=== PATIENT | male | born 1955 | race Caucasian/White ===

== ENCOUNTER → 2024-04-02 12:19 | Outpatient (REF) | payer MEDICARE, OTHER, SELFPAY | LOC: HWRAD 12:19 | PROVIDERS: ATTENDING PHYSICIAN Family Medicine | DX: R31.0 Gross hematuria (principal) | CPT/HCPCS: 74018 ==

== ENCOUNTER → 2024-05-24 10:26 | Outpatient (REF) | payer MEDICARE, OTHER, SELFPAY | LOC: RAD 10:26 | PROVIDERS: ATTENDING PHYSICIAN Specialist; FAMILY PHYSICIAN Family Medicine | DX: R31.0 Gross hematuria (principal) | CPT/HCPCS: 76770 ==

== ENCOUNTER → 2024-06-06 13:50 | Outpatient (REF) | payer MEDICARE, OTHER, SELFPAY | LOC: RAD 13:50 | PROVIDERS: ATTENDING PHYSICIAN Specialist; FAMILY PHYSICIAN Family Medicine | DX: R31.0 Gross hematuria (principal) | CPT/HCPCS: 74178; Q9967 ==

== ENCOUNTER → 2024-06-29 09:33 | Outpatient (REF) | payer MEDICARE, OTHER, SELFPAY | LOC: RAD 09:33 | PROVIDERS: ATTENDING PHYSICIAN Urology | DX: N28.89 Other specified disorders of kidney and ureter (principal) | CPT/HCPCS: 71046 ==

== ENCOUNTER 2024-07-03 06:10 | Day surgery (SDC) | payer MEDICARE, OTHER, SELFPAY ==
[2024-07-03] VITALS (10 sets, daily range): BP systolic 124–186; BP diastolic 45–98; BMI 29.6
[2024-07-03] MEDS: COREG 25 MG PO (07:21)
[2024-07-03] MEDS: NORMOSOL-R/PLASMALYTE-A 1000 IV (07:22)
[2024-07-03 07:29] LABS: Glucose - Point of Care 178 mg/dl (70-99)
[2024-07-03 09:20] LABS: Glucose - Point of Care 163 mg/dl (70-99)
[2024-07-03] MEDS: Pyridium 200 MG PO (09:53)
== END 2024-07-03 10:40 | disposition home or self-care (01) ==
LOC: SDS 06:10
PROVIDERS: ATTENDING PHYSICIAN Urology
DX: C67.9 Malignant neoplasm of bladder, unspecified (principal); N28.89 Other specified disorders of kidney and ureter; N32.0 Bladder-neck obstruction; N40.1 Benign prostatic hyperplasia with lower urinary tract symptoms; R31.0 Gross hematuria
CPT/HCPCS: 52234; 52204; 88305; 88307; 74420; 76000; 82962; 86900; 86901; 88112; 88342; A4300; C1769; C2617

== ENCOUNTER 2024-07-12 06:12 | Inpatient (IN) | payer MEDICARE, OTHER, SELFPAY ==
[2024-06-29 14:14] VITALS: BMI 30.9
[2024-07-12] VITALS (21 sets, daily range): BP systolic 136–181; BP diastolic 64–101; BMI 30.9; BMI 29.6
[2024-07-12 06:43] LABS: Glucose - Point of Care 165 mg/dl (70-99)
[2024-07-12] MEDS: NORMOSOL-R/PLASMALYTE-A 1000 IV (06:52)
[2024-07-12 08:58] LABS: Glucose - Point of Care 187 mg/dl (70-99)
[2024-07-12 11:08] LABS: Glucose - Point of Care 221 mg/dl (70-99)
[2024-07-12 11:54] LABS: Glucose - Point of Care 210 mg/dl (70-99)
--- NOTE | 2024-07-12 12:07 | W.IMMPOSTOP ---
Surgical Immed Post Op Note
-
Primary Surgeon: Josette
Assisting Surgeon:
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
Post-op Diagnosis: same
Procedure Performed: Robotic L nephroureterectomy/bladder cuff excision
Anesthesia Type: gen
Specimen / Cultures: L kidney and ureter
Estimated Blood Loss: 30cc
Complicatations: none
Operative Findings: negative leak test in bladder
[2024-07-12] MEDS: DILAUDID 0.5 MG IV ×6 (12:09→22:12)
[2024-07-12] MEDS: NOVOLOG vial 2 UNITS SC (12:26)
[2024-07-12 12:37] LABS: Hematocrit 38.7 % (39.0-52.0); Hemoglobin 13.8 g/dL (13.0-18.0)
[2024-07-12 12:58] LABS: Blood Urea Nitrogen 19 mg/dl (9-20); Calcium 9.4 mg/dl (8.4-10.2); Carbon Dioxide 25 mmol/L (22-30); Chloride 103 mmol/L (98-107); Estimated Creatinine Clearance 78 ml/min; Glucose 214 mg/dl (70-99); Potassium 4.9 mmol/L (3.5-5.1); Sodium 137 mmol/L (135-145); eGFR > 60.00
[2024-07-12] MEDS: DILAUDID 0.25 MG IV (13:10)
[2024-07-12 13:29] LABS: Glucose - Point of Care 203 mg/dl (70-99)
[2024-07-12] MEDS: NSS 1000 IV ×2 (13:30→22:11)
[2024-07-12] MEDS: NOVOLOG vial 3 UNITS SC (13:35)
[2024-07-12] MEDS: ACULAR 0.5% EYE DROPS 1 DROP OPHTH ×3 (14:01→22:11)
[2024-07-12 15:37] LABS: Glucose - Point of Care 133 mg/dl (70-99)
[2024-07-12] MEDS: PERCOCET 5/325 2 TABLET PO (17:15)
[2024-07-12 17:42] LABS: Glucose - Point of Care 134 mg/dl (70-99)
[2024-07-12] MEDS: COREG 25 MG PO (18:44)
[2024-07-12] MEDS: PERCOCET 5/325 1 TABLET PO (21:28)
[2024-07-12] MEDS: XALATAN OPHTHALMIC SOLUTION 1 DROP OPHTH (21:28)
[2024-07-12 21:56] LABS: Glucose - Point of Care 149 mg/dl (70-99)
[2024-07-12] MEDS: TYLENOL 650 MG PO (22:21)
[2024-07-12] MEDS: ZOFRAN 4 MG IV (22:21)
[2024-07-12] MEDS: ZESTRIL 20 MG PO (22:49)
[2024-07-13 00:19] VITALS: BP 168/99
[2024-07-13] MEDS: DILAUDID 0.5 MG IV (00:24)
[2024-07-13 01:28] VITALS: BP 155/92
[2024-07-13] MEDS: MYLICON 80 MG PO ×2 (02:03→10:38)
[2024-07-13 03:04] VITALS: BP 164/87
[2024-07-13] MEDS: PERCOCET 5/325 1 TABLET PO (06:33)
[2024-07-13 07:00] LABS: Hemoglobin 13.3 g/dL (13.0-18.0); Mean Corp Hgb Conc. 36.9 g/dL (33.0-37.0); Mean Corpuscular Hgb 31.4 pg (27.0-31.0); Mean Corpuscular Volume 84.9 fL (80.0-94.0); Mean Platelet Volume 9.8 fL (7.4-10.4); Platelet Count 241 10^3/uL (130-400); Red Blood Cell Count 4.24 10^6/uL (4.70-6.10); Red Cell Dist. Width 12.4 % (11.5-14.5); White Blood Cell Count 10.9 10^3/uL (4.8-10.8)
[2024-07-13 07:16] LABS: Blood Urea Nitrogen 20 mg/dl (9-20); Carbon Dioxide 24 mmol/L (22-30); Chloride 104 mmol/L (98-107); Estimated Creatinine Clearance 55 ml/min; Glucose 160 mg/dl (70-99); Potassium 4.2 mmol/L (3.5-5.1); Sodium 135 mmol/L (135-145); eGFR 59.47
[2024-07-13 08:15] LABS: Glucose - Point of Care 157 mg/dl (70-99)
[2024-07-13 08:16] VITALS: BP 113/63
--- NOTE | 2024-07-13 08:26 | W.PN.URO.CBU ---
Today's Communication / Plan
-
Discharge
Assessment / Plan
-
69M POD 1 s/p L nephroureterectomy with bladder cuff excision
- DM diet
- HTN meds
- Ambulate
- PO pain control
- Discharge home with enriquez in place
Diagnosis
-
Date of Service: July 13, 2024
-
Patient Diagnosis:
L UTUC
Post Op Day: 1 s/p L nephroureterectomy
Subjective
-
some pain overnight
tolerating diet
has not ambulated
Objective
-
Vital Signs
Temp Pulse Resp BP Pulse Ox
97.8 F 68 17 113/63 94
07/13/24 08:16 07/13/24 08:16 07/13/24 08:16 07/13/24 08:16 07/13/24 08:16
Intake and Output
07/12/24 07/13/24 07/14/24
06:59 06:59 06:59
Intake Total 1680 / 1680
Output Total 1550 / 1550
Balance 130 / 130
Intake:
Oral fluids 480 / 480
IV fluids (Total) 1200 / 1200
Output:
Urine, Enriquez 1550 / 1550
Laboratory Results
07/13/24 06:42
07/13/24 06:42
Physical Exam
-
General - well developed, well nourished, no acute distress
Chest - clear bilaterally
Abdomen - soft, non-tender
Genitalia - normal
Rectal - normal
Skin - warm & dry with no rash
Neuro - AOx3, no motor deficits
Extremities - no clubbing, no cyanosis, no edema
Incision - clean, dry
Dressing - clean, dry, intact
--- NOTE | 2024-07-13 08:28 | W.DS.TRANS ---
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
-
Discharge Instructions:
Sleep Apnea Risk Intermediate
Instructions:
Stand-Alone Forms:
Changes to Home Medications: No
Discharge Medications:
DC Medications w/original date entered in [facility]
carvedilol 25 mg tablet 25 mg PO BID Heart Disease/Condition 06/29/24
hcgkhpraxez-yklnoerju-wzg C-Mn 500 mg-400 mg capsule 1 cap PO DAILY 06/29/24
latanoprost 0.005 % eye drops 1 drp ophthalmic (eye) HS Eye Condition 06/29/24
lisinopril 40 mg tablet 40 mg PO DAILY Blood Pressure 06/29/24
metformin 500 mg tablet,extended release 24hr (osmotic) 500 mg PO BID Infection 06/29/24
multivitamin 1 tab PO DAILY Supplement 06/29/24
Home Medication Changes
Pending Results: Yes (patholgoy)
[2024-07-13] MEDS: COREG 25 MG PO (08:32)
[2024-07-13] MEDS: ACULAR 0.5% EYE DROPS 1 DROP OPHTH (08:32)
--- NOTE | 2024-07-13 09:28 | CM ---
Addendum entered by Brittany Houser RN 07/13/24 09:31:
Correction: Patient's pharmacy is the [facility].
Original Note:
Reviewed the chart notes and spoke with the patient at the bedside. IMM reviewed. The patient resides with his spouse in a two story home with no steps to enter. The patient reports no DME/VN/SNF in the past. The patient confirmed his pharmacy
of choice is the [facility]. CM continues to be available to patient/family and is monitoring medical plan for needs at discharge.
Plan: Discharge to home today with no needs. Patient's spouse to provide transportation.
[2024-07-13 10:09] LABS: Glycohemoglobin (HgbA1c) 6.6 % (4.0-5.6)
[2024-07-13] MEDS: ZESTRIL 40 MG PO (10:24)
[2024-07-13] MEDS: PERCOCET 5/325 2 TABLET PO (10:33)
[2024-07-13 12:36] LABS: Glucose - Point of Care 224 mg/dl (70-99)
[2024-07-13 12:49] VITALS: BP 128/63
== END 2024-07-13 13:37 | disposition home or self-care (01) | DRG 655 ==
LOC: 2 NORTH 06:12
PROVIDERS: ADMITTING PHYSICIAN Urology
PROC: 0TBB4ZZ Excision of Bladder, Percutaneous Endoscopic Approach (ICD-10-PCS; 2024-07-12)
PROC: 0TT14ZZ Resection of Left Kidney, Percutaneous Endoscopic Approach (ICD-10-PCS; 2024-07-12)
PROC: 0TT74ZZ Resection of Left Ureter, Percutaneous Endoscopic Approach (ICD-10-PCS; 2024-07-12)
DX: C68.9 Malignant neoplasm of urinary organ, unspecified (principal); E11.9 Type 2 diabetes mellitus without complications; I10 Essential (primary) hypertension
CPT/HCPCS: 88307; 88309; 71045; 80048; 82962; 83036; 85014; 85018; 85027; 86920

== ENCOUNTER → 2024-11-16 11:34 | Outpatient (REF) | payer MEDICARE, OTHER, SELFPAY | LOC: CLAB 11:34 | PROVIDERS: ATTENDING PHYSICIAN Urology | DX: R31.0 Gross hematuria (principal) | CPT/HCPCS: 88112 ==

== ENCOUNTER → 2025-01-17 07:10 | Outpatient (REF) | payer MEDICARE, OTHER, SELFPAY | LOC: RAD 07:10 | PROVIDERS: ATTENDING PHYSICIAN Urology; FAMILY PHYSICIAN Family Medicine | DX: C68.9 Malignant neoplasm of urinary organ, unspecified (principal) | CPT/HCPCS: 74178; Q9967 ==